=== PATIENT | female | born 1980 | race African-American/Black ===

== ENCOUNTER 2017-09-30 11:10 | Emergency (ER) | payer MEDICAID, MEDICARE ==
[~2017-09-30] VITALS: Ht 175.3 cm; Wt 67.1 kg
[2017-09-30 11:20] VITALS: BP 139/83
[2017-09-30] MEDS ORDERED: NACL 0.9% 1,000 ML IV SCH (11:26)
[2017-09-30] MEDS ORDERED: KETOROLAC 30 MG/ML VIAL IVP ONE (11:30)
[2017-09-30] MEDS ORDERED: MORPHINE SULFATE 4 MG/ML SYR IVP ONE (11:30)
[2017-09-30] MEDS ORDERED: ONDANSETRON 4 MG/2 ML VIAL IVP ONE (11:30)
--- NOTE | 2017-09-30 11:32 | NUR ---
PT TO XRAY. RICARDO VILLANUEVA AWARE. SERGEYS. LEO.
--- NOTE | 2017-09-30 11:45 | NUR ---
PT TO BED 10
[2017-09-30 11:52] LABS: BASOPHILS # (AUTO) 0.1 K/uL (0.00-0.22); EOSINOPHILS # (AUTO) 0.2 K/uL (0-0.4); EOSINOPHILS % (AUTO) 1.8 % (0.0-4.0); HEMATOCRIT 33.7 % (36-48); HEMOGLOBIN 10.7 g/dL (12.0-16.0); LYMPHOCYTES # (AUTO) 0.8 K/uL (2.5-16.5); LYMPHOCYTES % (AUTO) 9.2 % (20.5-51.1); MEAN CORPUSCULAR HEMOGLOBIN 25 pg (27-31); MEAN CORPUSCULAR HGB CONC 32 g/dL (33-37); MEAN CORPUSCULAR VOLUME 79 fL (80-94); MONOCYTES # (AUTO) 0.7 K/uL (0.8-1.0); MONOCYTES % (AUTO) 8.4 % (1.7-9.3); NEUTROPHILS # (AUTO) 6.7 K/uL (1.8-7.7); NEUTROPHILS % (AUTO) 79.6 % (42.2-75.2); PLATELET COUNT (AUTO) 240 K/uL (140-450); RED BLOOD CELL COUNT(AUTO) 4.28 MIL/uL (4.20-5.40); RED CELL DISTRIBUTION WIDTH 16.3 % (11.6-13.7); WHITE BLOOD COUNT (AUTO) 8.5 K/uL (4.8-10.8)
--- NOTE | 2017-09-30 12:01 | NUR ---
ASSUMED PATIENT CARE, CONCUR WITH TRIAGE. NURSING ASSESSMENT COMPLETED.
[2017-09-30 12:26] LABS: ALBUMIN 3.8 g/dL (3.4-5.0); ANION GAP 13.8 (8-16); CARBON DIOXIDE 26.1 mmol/L (21-32); TOTAL BILIRUBIN 1.1 mg/dL (0.0-1.0)
[2017-09-30 12:28] LABS: POTASSIUM 2.9 mmol/L (3.5-5.1)
[2017-09-30] MEDS ORDERED: POTASSIUM CHLORIDE 20% 40 MEQ/15 ML UDC PO ONE (12:30)
[2017-09-30 12:43] LABS: APPEARANCE,URINE CLEAR (CLEAR); BILIRUBIN,URINE 1+ (NEGATIVE); BLOOD, URINE NEGATIVE (NEGATIVE); COLOR,URINE YELLOW (YELLOW); LEUKOCYTE ESTERASE ,URINE NEGATIVE (NEGATIVE); NITRITE, URINE NEGATIVE (NEGATIVE); UGLUCOSE NEGATIVE (NEGATIVE)
[2017-09-30 13:05] VITALS: BP 122/62
--- NOTE | 2017-09-30 13:05 | NUR ---
DISPO AND MEDICAL DECISION MAKING, DC HOME WITH INSTRUCTIONS AND PRESCRIPTIONS. PATIENT VERBALIZING RELIEF FROM SYMPTOMS, VSWNL.
[2017-09-30 13:32] LABS: RBC,URINE 0-5 (RARE) /HPF (0-5); WBC,URINE 0-5 (RARE) /HPF (0-5)
== END 2017-09-30 13:05 | disposition home or self-care (01) ==
LOC: MED 11:10
DX: B34.9 Viral infection, unspecified (principal)
CPT/HCPCS: 36415; 71045; 80053; 81001; 81025; 82150; 83690; 84484; 84703; 85025; 87804; 93005; 96361; 96374; 96375; 99285; J1885; J2270; J2405

== ENCOUNTER 2017-12-27 11:31 | Emergency (ER) | payer MEDICARE ==
[~2017-12-27] VITALS: Ht 175.3 cm; Wt 70.4 kg
[2017-12-27 11:48] VITALS: BP 108/84
--- NOTE | 2017-12-27 11:55 | NUR ---
37Y/F C/O ABD PAIN, CP, NVD ON WEDNESDAY NONE TODAY. HX; DENIES. RX; DENIES. PATIENT STATES PAIN OF 0/10 AT THIS TIME; PATIENT POSITIONED FOR COMFORT; ER MD MADE AWARE OF PT STATUS.
[2017-12-27] MEDS ORDERED: DICYCLOMINE HCL LIQUID 20 MG, ALUMINUM HYD/MAG/SIMETHICONE 30 ML, LIDOCAINE VISCOUS 2% ... PO ONE ×3 (13:15)
[2017-12-27 15:25] VITALS: BP 98/55
--- NOTE | 2017-12-27 15:28 | NUR ---
Patient discharged with v/s stable. Written and verbal after care instructions given and explained. Patient alert, oriented and verbalized understanding of instructions. Ambulatory with steady gait. All questions addressed prior to discharge. ID band removed. Patient advised to follow up with PMD. Rx of BENTYL, SIMETHICONE given. Patient educated on indication of medication including possible reaction and side effects. Opportunity to ask questions provided and answered.
== END 2017-12-27 15:28 | disposition home or self-care (01) ==
LOC: MED 11:31
DX: R07.89 Other chest pain (principal); R10.9 Unspecified abdominal pain; R11.2 Nausea with vomiting, unspecified
CPT/HCPCS: 71045; 81002; 81025; 99283

== ENCOUNTER 2018-12-05 17:15 | Emergency (ER) | payer BC, MEDICARE ==
[~2018-12-05] VITALS: Ht 175.3 cm; Wt 61.7 kg
[2018-12-05 17:23] VITALS: BP 152/97
--- NOTE | 2018-12-05 18:37 | NUR ---
Patient ambulated to bed 4.
--- NOTE | 2018-12-05 18:49 | NUR ---
PATIENT PRESENTS TO ED WITH C/O COUGH AND THROAT PAIN X 2 DAYS . DENIES N/V/D; SKIN IS PINK/WARM/DRY; PT IS AAOX4 WITH EVEN AND STEADY GAIT; LUNGS CLEAR BL; HR EVEN AND REGULAR; PATIENT STATES SORE THROAT 9/10 AT THIS TIME; VSS; PATIENT POSITIONED FOR COMFORT; HOB ELEVATED; BEDRAILS UP X2; BED DOWN. ER MD MADE AWARE OF PT STATUS.
--- NOTE | 2018-12-05 19:20 | NUR ---
CHAPERONED PA IN PELVIC EXAM. PATEINT TOLERATED WELL. SAMPLES COLLECTED.
[2018-12-05 19:50] VITALS: BP 134/81
--- NOTE | 2018-12-05 19:50 | NUR ---
Patient discharged with v/s stable. Written and verbal after care instructions given and explained. Patient alert, oriented and verbalized understanding of instructions. Ambulatory with steady gait. All questions addressed prior to discharge. ID band removed. Patient advised to follow up with PMD. Rx of DIMETAPP, FLAGYL, DIFLUCAN, PREDNISONE, AND ALBUTEROL given. Patient educated on indication of medication including possible reaction and side effects. Opportunity to ask questions provided and answered.
== END 2018-12-05 19:50 | disposition home or self-care (01) ==
LOC: MED 17:15
DX: J06.9 Acute upper respiratory infection, unspecified (principal); J98.01 Acute bronchospasm; B37.9 Candidiasis, unspecified; N76.0 Acute vaginitis; B96.89 Other specified bacterial agents as the cause of diseases classified elsewhere
CPT/HCPCS: 87070; 87210; 99283

== ENCOUNTER 2019-01-16 13:23 | Emergency (ER) | payer BC ==
[~2019-01-16] VITALS: Ht 175.3 cm; Wt 73.6 kg
[2019-01-16 13:37] VITALS: BP 118/66
--- NOTE | 2019-01-16 14:00 | NUR ---
PT C/O CHEST PRESSURE 7/10, INTERMITTENT WITH NUMBNESS TO BOTH ARMS SINCE LAST NIGHT WITH DIZZINESS X3 DAYS, ALSO RLQ AREA SHARP, INTERMITTENT RADIATION TO RIGHT LEG. PT STATED POSITIVE . LMP OCTOBER. DENIES SOB/NVD. SINUS RHYTHM ON MONITOR, NO ECTOPIES. DENIES BLEEDING/DISCHARGE. PT PLACED IN GOWN, BED LOCKED IN LOW POSITION, PLACED ON MONITOR AT THIS TIME.
--- NOTE | 2019-01-16 14:00 | NUR ---
PT AMBULATED TO BED 9 AT THIS TIME
--- NOTE | 2019-01-16 14:35 | NUR ---
PT PLACED ON VIDEO CAMERA OPERATOR
--- NOTE | 2019-01-16 14:45 | NUR ---
US AT BEDSIDE
--- NOTE | 2019-01-16 15:37 | NUR ---
PT RESTING IN BED, NO NEW NEEDS AT THIS TIME, PT STATES SHE IS NOT FEELING CHEST PAIN AT THIS TIME
[2019-01-16 15:39] LABS: BASOPHILS # (AUTO) 0.1 K/uL (0.00-0.22); BASOPHILS % (AUTO) 1.6 % (0.0-2.0); EOSINOPHILS # (AUTO) 0.1 K/uL (0-0.4); EOSINOPHILS % (AUTO) 2.5 % (0.0-4.0); HEMATOCRIT 34.5 % (36-48); HEMOGLOBIN 11.1 g/dL (12.0-16.0); LYMPHOCYTES # (AUTO) 1.3 K/uL (2.5-16.5); LYMPHOCYTES % (AUTO) 23.8 % (20.5-51.1); MEAN CORPUSCULAR HEMOGLOBIN 25 pg (27-31); MEAN CORPUSCULAR HGB CONC 32 g/dL (33-37); MONOCYTES # (AUTO) 0.4 K/uL (0.8-1.0); MONOCYTES % (AUTO) 7.2 % (1.7-9.3); NEUTROPHILS # (AUTO) 3.7 K/uL (1.8-7.7); NEUTROPHILS % (AUTO) 64.9 % (42.2-75.2); PLATELET COUNT (AUTO) 378 K/uL (140-450); RED BLOOD CELL COUNT(AUTO) 4.48 MIL/uL (4.20-5.40); RED CELL DISTRIBUTION WIDTH 21.1 % (11.6-13.7); WHITE BLOOD COUNT (AUTO) 5.6 K/uL (4.8-10.8)
[2019-01-16 16:02] LABS: LEUKOCYTE ESTERASE ,URINE 1+ (NEGATIVE)
[2019-01-16 16:03] LABS: APPEARANCE,URINE CLEAR (CLEAR); BILIRUBIN,URINE NEGATIVE (NEGATIVE); BLOOD, URINE NEGATIVE (NEGATIVE); COLOR,URINE YELLOW (YELLOW); NITRITE, URINE NEGATIVE (NEGATIVE); PH,URINE 7.5 (5.0-9.0); UGLUCOSE NEGATIVE (NEGATIVE)
[2019-01-16 16:13] LABS: RBC,URINE 0-5 /HPF (0-5)
[2019-01-16 16:45] VITALS: BP 119/85
--- NOTE | 2019-01-16 16:57 | NUR ---
Patient discharged with v/s stable. Written and verbal after care instructions given and explained. Patient alert, oriented and verbalized understanding of instructions. Ambulatory with steady gait. All questions addressed prior to discharge. ID band removed. Patient advised to follow up with PMD. Rx of ACETAMINOPHEN & MACROBID given. Patient educated on indication of medication including possible reaction and side effects. Opportunity to ask questions provided and answered.
== END 2019-01-16 16:57 | disposition home or self-care (01) ==
LOC: MED 13:23
DX: O26.891 Other specified pregnancy related conditions, first trimester (principal); R10.2 Pelvic and perineal pain; Z3A.08 8 weeks gestation of pregnancy; M79.601 Pain in right arm; M79.602 Pain in left arm
CPT/HCPCS: 36415; 76817; 81001; 81025; 84702; 85025; 86900; 86901; 87086; 93005; 99284; Q0092

== ENCOUNTER 2019-07-07 08:58 | Emergency (ER) | payer BC ==
[~2019-07-07] VITALS: Ht 175.3 cm; Wt 71.8 kg
[2019-07-07 09:01] VITALS: BP 128/85
[2019-07-07] MEDS ORDERED: KETOROLAC 30 MG/ML VIAL IM ONE (10:40)
[2019-07-07] MEDS ORDERED: IBUPROFEN 600 MG TAB ONE (10:49)
[2019-07-07] MEDS ORDERED: IBUPROFEN 600 MG TAB PO ONE (10:50)
[2019-07-07 11:09] VITALS: BP 121/82
== END 2019-07-07 11:07 | disposition home or self-care (01) ==
LOC: MED 08:58
DX: R07.89 Other chest pain (principal); R30.0 Dysuria
CPT/HCPCS: 71046; 81002; 81025; 93005; 99283; J1885

== ENCOUNTER 2021-03-04 12:59 | Emergency (ER) | payer BC, MEDICAID ==
[~2021-03-04] VITALS: Ht 175.3 cm; Wt 64.9 kg
[2021-03-04 13:22] VITALS: BP 159/115
--- NOTE | 2021-03-04 13:28 | NUR ---
CHETAN. HANDED ON URINE CUP.
--- NOTE | 2021-03-04 15:10 | NUR ---
ambulated to bed 5
--- NOTE | 2021-03-04 15:14 | NUR ---
40/F presents to ED with c/o lower abdominal pain since this morning. Patient states she had four glasses of wine and "lots of coffee" this morning and began experiencing 10/10 sharp lower abdominal pain. Patient states pain is non radiating, not tender to touch, states she took 4 Tylenol today with no relief. Patient states she had a couple episodes of diarrhea after drinking the coffee, states "I never drink coffee." Patient denies nausea or vomiting, denies dysuria or hematuria. Patient placed in gown.
[2021-03-04] MEDS ORDERED: KETOROLAC 30 MG/ML VIAL IM ONE (15:15)
[2021-03-04] MEDS ORDERED: LORazepam 1 MG TAB PO ONE (15:15)
--- NOTE | 2021-03-04 15:38 | NUR ---
Ultrasound at bedside
--- NOTE | 2021-03-04 16:27 | NUR ---
Stood in as female Legal Document Specialist accompanied Dr. Holloway for female patient for Pelvic Exam.
[2021-03-04 17:03] LABS: BARBITURATE, URINE NEGATIVE ng/ml (NEG <=200); BENZODIAZEPINE, URINE NEGATIVE ng/mL (NEG <=200); CANNABINOID, URINE NEGATIVE ng/mL (NEG <=50); COCAINE, URINE NEGATIVE ng/mL (NEG <=300); OPIATE, URINE NEGATIVE ng/mL (NEG <=2000); PHENCYCLIDINE SCREEN,URINE NEGATIVE ng/mL (NEG <=25)
[2021-03-04] MEDS ORDERED: cefTRIAXone 1,000 MG in LIDOCAINE MPF 1% 2.1 ML IM ONE (18:05)
[2021-03-04] MEDS ORDERED: metroNIDAZOLE 500 MG TAB PO ONE (18:05)
[2021-03-04] MEDS ORDERED: METR500T1 PO (18:07)
[2021-03-04] MEDS ORDERED: NAPR-54 PO (18:07)
[2021-03-04] MEDS ORDERED: DOXY100C9 PO (18:07)
[2021-03-04 18:19] LABS: APPEARANCE,URINE CLEAR (CLEAR); BILIRUBIN,URINE NEGATIVE (NEGATIVE); BLOOD, URINE 3+ (NEGATIVE); COLOR,URINE YELLOW (YELLOW); LEUKOCYTE ESTERASE ,URINE NEGATIVE (NEGATIVE); NITRITE, URINE NEGATIVE (NEGATIVE); PH,URINE 6.5 (5.0-9.0); UGLUCOSE NEGATIVE (NEGATIVE)
[2021-03-04 18:22] LABS: RBC,URINE 11-20 (MOD) /HPF (0-5); WBC,URINE 0-5 /HPF (0-5)
[2021-03-04] MEDS ORDERED: LIDOCAINE MPF 1% 5 ML ONE (18:25)
[2021-03-04] MEDS ORDERED: cefTRIAXone 1,000 MG VIAL ONE (18:25)
[2021-03-04 18:50] VITALS: BP 135/56
--- NOTE | 2021-03-04 18:50 | NUR ---
Patient discharged with v/s stable. Written and verbal after care instructions given and explained. Patient alert, oriented and verbalized understanding of instructions. Ambulatory with steady gait. All questions addressed prior to discharge. ID band removed. Patient advised to follow up with PMD. Rx of Doxycycline, Flagyl and Naprosyn given. Patient educated on indication of medication including possible reaction and side effects. Opportunity to ask questions provided and answered.
== END 2021-03-04 18:50 | disposition home or self-care (01) ==
LOC: MED 12:59
DX: R10.2 Pelvic and perineal pain (principal); R19.7 Diarrhea, unspecified; R31.9 Hematuria, unspecified; Z79.899 Other long term (current) drug therapy; Z98.890 Other specified postprocedural states
CPT/HCPCS: 36415; 74176; 76830; 80305; 81001; 81025; 87210; 87491; 93976; 96372; 99285; J0696; J1885; J2001

== ENCOUNTER 2021-06-23 14:40 | Emergency (ER) | payer MEDICAID ==
[~2021-06-23] VITALS: Ht 175.3 cm; Wt 67.1 kg
[~2021-06-23 14:40] MED LIST: DOXY-690 PO; METR500T1 PO; NAPR-54 PO
[2021-06-23 14:51] VITALS: BP 124/69
--- NOTE | 2021-06-23 15:22 | NUR ---
[facility] ATTEMPTED TO TAKE PT FOR XRAYS. PT DENIED AND TOLD THEM TO COME BACK LATER. REGINO AVINA MADE AWARE
[2021-06-23] MEDS ORDERED: NAPR-54 PO (17:19)
--- NOTE | 2021-06-23 18:01 | NUR ---
Attempted to place a splint on pt's left foot. Pt not cooperative and not allowing me to place splint. Enio Rock made aware.
--- NOTE | 2021-06-23 18:05 | NUR ---
PATIENT YELLING IN THE PARKING LOT, STATING "YOU'RE NOT GOING TO WRAP MY FOOT UP.", REFUSING TO SIGN DISCHARGE WORK.
--- NOTE | 2021-06-23 18:06 | NUR ---
SECURITY CALLED ON PATIENT
--- NOTE | 2021-06-23 18:09 | NUR ---
Patient discharged. Written and verbal after care instructions given and explained. Patient alert. SITTING IN CHAIR OUTSIDE LOBBY. Patient advised to follow up with PMD. Rx of NAPROSYN given. Patient educated on indication of medication including possible reaction and side effects. Opportunity to ask questions provided and answered. PATIENT REFUSED TO SIGN DC WORK, DC PAPERS PROVIDED.
--- NOTE | 2021-06-23 18:11 | NUR ---
PT FOUND WITH A BOTTLE OF LIQUOR, VILLA. PT IS LAYING ON THE FLOOR, INTOXICATED, BEING AGGRESSIVE. JACKELYN HUTTON CALLED.
== END 2021-06-23 18:01 | disposition home or self-care (01) ==
LOC: MED 14:40
DX: S92.002A Unspecified fracture of left calcaneus, initial encounter for closed fracture (principal); Z79.899 Other long term (current) drug therapy; X58.XXXA Exposure to other specified factors, initial encounter; Y93.89 Activity, other specified; Y92.89 Other specified places as the place of occurrence of the external cause; Y99.8 Other external cause status
CPT/HCPCS: 29505; 73610; 73630; 99284